=== PATIENT | male | born 1970 ===

== ENCOUNTER 2018-05-11 21:17 | Emergency (ER) | payer OTHER ==
[2018-05-11 21:26] VITALS: BP 153/75; PULSE 80; RESP 17; TEMP 98.2; O2SAT 98
--- NOTE | 2018-05-11 22:26 | ED PDOC ---
Lower Extremity Pain/Injury Time Seen by Provider: 05/11/18 21:22 Chief Complaint (Nursing): Lower Extremity Problem/Injury Chief Complaint (Provider): Left ankle injury, twisted Past Medical History Vital Signs: Last Vital Signs Temp 98.2 F 05/11/18 21:24 Pulse 80 05/11/18 21:24 Resp 17 05/11/18 21:24 BP 153/75 H 05/11/18 21:24 Pulse Ox 98 05/11/18 21:24 - Medical History PMH: Denies: Chronic Kidney Disease - Allergies Allergies/Adverse Reactions: Allergies Allergy/AdvReac Type Severity Reaction Status Date / Time No Known Allergies Allergy Verified 06/24/15 13:52 - ECG O2 Sat by Pulse Oximetry: 98 Disposition - Clinical Impression Clinical Impression: Ankle sprain - Patient ED Disposition Is Patient to be Admitted: No Counseled Patient/Family Regarding: Diagnosis, Need For Followup - Disposition Referrals: Anthony Monaco DPM [Medical Doctor] - Disposition: Routine/Home Disposition Time: 22:25 Condition: GOOD Additional Instructions: Ice, elevation, motrin. Please follow-up with podiatry. Instructions: Ankle Sprain (DC)
--- NOTE | 2018-05-12 07:38 | RAD ---
PROCEDURE: Left Ankle Radiographs. HISTORY: lateral malleolous pain COMPARISON: None FINDINGS: BONES: No acute fracture or destructive bony lesion identified. Accessory ossicles and/or tiny chronic avulsion fractures inferior to the medial malleolus. JOINTS: Normal. No osteoarthritis. Ankle mortise maintained. Talar dome intact SOFT TISSUES: Mild lateral malleolar soft tissue edema noted extending anteriorly somewhat. OTHER FINDINGS: None. IMPRESSION: Mild lateral malleolar soft tissue edema identified extending anteriorly somewhat. No acute fracture or destructive bony lesion identified. If symptoms persist or worsen follow-up MRI recommended.
--- NOTE | 2018-05-12 07:39 | RAD ---
PROCEDURE: Left Foot Radiographs. HISTORY: left lateral foot pain COMPARISON: None. FINDINGS: BONES: No acute fracture or destructive bony lesion identified. JOINTS: Limited degenerative cortical sclerosis appreciate the 1st metatarsophalangeal joint as well as the interphalangeal joint of the great toe compatible degenerative joint disease. SOFT TISSUES: Normal. OTHER FINDINGS: None. IMPRESSION: Limited degenerative changes seen at the 1st digit including the 1st metatarsophalangeal joint. No acute fracture or destructive bony lesion appreciated. No dislocation or subluxation either.
== END 2018-05-11 22:52 | disposition home or self-care (01) ==
LOC: H.ER 21:17
DX: S93.402A Sprain of unspecified ligament of left ankle, initial encounter (principal); X50.9XXA Other and unspecified overexertion or strenuous movements or postures, initial encounter; Y99.0 Civilian activity done for income or pay

== ENCOUNTER 2018-10-13 23:07 | Emergency (ER) | payer OTHER ==
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
[2018-10-14 03:44] VITALS: BP 138/83; PULSE 92; RESP 18; TEMP 98.3
[2018-10-14 04:15] VITALS: O2SAT 99
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
== END 2018-10-14 03:50 | disposition home or self-care (01) ==
LOC: H.ER 23:07
DX: S02.2XXA Fracture of nasal bones, initial encounter for closed fracture (principal); S09.90XA Unspecified injury of head, initial encounter; S50.12XA Contusion of left forearm, initial encounter; Y35.811A Legal intervention involving manhandling, law enforcement official injured, initial encounter; Y99.0 Civilian activity done for income or pay; I10 Essential (primary) hypertension; J01.90 Acute sinusitis, unspecified